=== PATIENT | female | born 1975 | race African-American/Black ===

== ENCOUNTER 2025-09-03 20:29 | Inpatient (IN) | payer MEDICAID ==
[~2025-09-03] VITALS: Ht 167.6 cm; Wt 67.1 kg
[2025-09-03 20:34] VITALS: O2SAT 98
[2025-09-03] MEDS: MORPHINE SULFATE 4 MG/ML INJ (FOR IV/IM USE) IV ONE (21:37)
[2025-09-03] MEDS: ONDANSETRON HCL 4MG/2ML INJ IV ONE (21:37)
[2025-09-03 21:43] LABS: BASOPHILS % 0.4 % (0.0-2.0); EOSINOPHILS % 2.5 % (0.0-5.0); HEMATOCRIT. 39.4 % (36.0-48.0); HEMOGLOBIN. 13.0 g/dL (12.0-16.0); LYMPHOCYTES % 49.2 % (20.0-50.0); MEAN PLATELET VOLUME 8.0 fl (7.4-10.4); MONOCYTES % 6.7 % (2.0-8.0); NEUTROPHILS % 41.2 % (40.0-76.0); PLATELET 263 x1000/uL (130-400); RED BLOOD CELL COUNT 4.08 mill/uL (4.2-5.4); RED CELL DISTRIBUTION WIDTH 16.0 % (11.6-14.6)
[2025-09-03] MEDS ORDERED: NICOTINE 14MG PATCH TD ONE (21:45)
[2025-09-03 22:02] LABS: CREATININE 0.9 mg/dL (0.6-1.0)
[2025-09-03 22:03] LABS: TROPONIN I HIGH SENSITIVITY < 4 ng/L (3.0-34); UREA NITROGEN BLOOD 13 mg/dL (9-23)
[2025-09-03 22:04] LABS: ASPARTATE AMINOTRANSFERASE 11 IU/L (<34)
[2025-09-03 22:05] LABS: BILIRUBIN DIRECT 0.1 mg/dL (<=3.0); BILIRUBIN TOTAL 0.4 mg/dL (0.1-1.0); PROTEIN TOTAL 7.2 g/dL (6.0-8.3)
[2025-09-03] MEDS: NICOTINE 7MG PATCH TOP NR (22:49)
[2025-09-03] MEDS ORDERED: CLONIDINE 0.1MG TABLET PO PRN (23:45)
[2025-09-03] MEDS ORDERED: ACETAMINOPHEN 325MG TABLET PO PRN (23:45)
[2025-09-03] MEDS ORDERED: ZOLPIDEM TARTRATE 5MG TABLET PO PRN (23:45)
[2025-09-03] MEDS ORDERED: DEXTROSE 50% WATER 50ML SYRINGE IV PRN (23:45)
[2025-09-03] MEDS ORDERED: MAGNESIUM/ALUMINUM HYDROXIDE/SIMETHICONE 30ML UDC PO PRN (23:45)
[2025-09-03] MEDS ORDERED: ONDANSETRON HCL 4MG/2ML INJ IV PRN (23:45)
[2025-09-03 23:54] LABS: TROPONIN I HIGH SENSITIVITY 5 ng/L (3.0-34)
[2025-09-04] MEDS: HYDROCODONE/ACETAMINOPHEN 5/325MG TABLET PO PRN (03:38)
[2025-09-04] MEDS: INSULIN LISPRO 100 UNITS/ML SUBCUT SCH (08:23)
[2025-09-04 08:58] LABS: BASOPHILS % 0.2 % (0.0-2.0); EOSINOPHILS % 2.3 % (0.0-5.0); HEMATOCRIT. 37.9 % (36.0-48.0); HEMOGLOBIN. 12.4 g/dL (12.0-16.0); LYMPHOCYTES % 26.7 % (20.0-50.0); MEAN PLATELET VOLUME 8.0 fl (7.4-10.4); MONOCYTES % 6.5 % (2.0-8.0); NEUTROPHILS % 64.3 % (40.0-76.0); PLATELET 248 x1000/uL (130-400); RED BLOOD CELL COUNT 3.88 mill/uL (4.2-5.4); RED CELL DISTRIBUTION WIDTH 16.4 % (11.6-14.6)
[2025-09-04] MEDS: ENOXAPARIN 40MG/0.4ML SYR SUBCUT SCH (09:00)
[2025-09-04 09:14] LABS: CREATININE 1.1 mg/dL (0.6-1.0); UREA NITROGEN BLOOD 10 mg/dL (9-23)
[2025-09-04 09:15] LABS: TROPONIN I HIGH SENSITIVITY < 4 ng/L (3.0-34)
[2025-09-04] MEDS: BLOOD SUGAR DIAGNOSTIC STRIP TEST SCH (09:54)
[2025-09-04] MEDS: INSULIN GLARGINE 100 UNITS/ML SUBCUT SCH (09:58)
[2025-09-04] MEDS: PANTOPRAZOLE SODIUM 40 MG/VIAL IV SCH (10:01)
[2025-09-04] MEDS ORDERED: HYDR-4009 MT (10:11)
[2025-09-04] MEDS ORDERED: FAMO40TA7 PO (10:11)
[2025-09-04] MEDS ORDERED: LORA-249 PO (10:26)
[2025-09-04] MEDS ORDERED: METO-293 PO (10:26)
[2025-09-04] MEDS ORDERED: ASPI-1497 PO (10:26)
[2025-09-04] MEDS ORDERED: METF-416 PO (10:26)
[2025-09-04] MEDS ORDERED: INSU100I28 SQ (10:26)
[2025-09-04] MEDS ORDERED: ASCO100T12 MT (10:26)
[2025-09-04] MEDS ORDERED: PREG100C55 PO (10:26)
[2025-09-04] MEDS ORDERED: FLUT9.9S BOTHNSTRLS (10:26)
[2025-09-04] MEDS ORDERED: ISOS30TA12 PO (10:26)
[2025-09-04] MEDS ORDERED: NITR0.4T49 SL (10:26)
[2025-09-04] MEDS ORDERED: INSU100V43 SQ (10:26)
[2025-09-04] MEDS ORDERED: FERR325T6 PO (10:26)
[2025-09-04] MEDS ORDERED: AMLO5TAB88 PO (10:26)
[2025-09-04] MEDS ORDERED: TC025C15 TP (10:26)
[2025-09-04] MEDS ORDERED: ESCI20TA PO (10:26)
[2025-09-04] MEDS ORDERED: TOLT4CAP27 MT (10:26)
[2025-09-04] MEDS ORDERED: ATOR-2 PO (10:26)
[2025-09-04] MEDS ORDERED: LEVO137T2 PO (10:26)
[2025-09-04] MEDS: SODIUM CHLORIDE 0.9% 1,000 ML IV NR (10:40)
[2025-09-04 11:22] VITALS: BP 130/71; PULSE 77; RESP 18; TEMP 36.7516
[2025-09-04 12:00] VITALS: BP 148/88; PULSE 78; RESP 18; TEMP 36.7; O2SAT 98
[2025-09-04 12:43] VITALS: BP 130/71; PULSE 77; RESP 18
[2025-09-04] MEDS ORDERED: ATORVASTATIN CALCIUM 40MG TABLET PO SCH (21:00)
[2025-09-05] MEDS ORDERED: ASPIRIN 81MG TABLET PO SCH (09:00)
== END 2025-09-04 17:57 | disposition left against medical advice (07) | DRG 198 ==
LOC: ER 20:29 → 8WST 22:41 → EDBEDREQTM 22:47 → EDBEDREQ 22:47 → ENRESERV 09-04 08:18
PROVIDERS: ADMIT Internal Medicine; ATTEND Internal Medicine
DX: I25.110 Atherosclerotic heart disease of native coronary artery with unstable angina pectoris (principal); E11.65 Type 2 diabetes mellitus with hyperglycemia; F17.200 Nicotine dependence, unspecified, uncomplicated; G89.29 Other chronic pain; J44.9 Chronic obstructive pulmonary disease, unspecified; I10 Essential (primary) hypertension; E78.5 Hyperlipidemia, unspecified; Z53.29 Procedure and treatment not carried out because of patient's decision for other reasons; Z91.148 Patient's other noncompliance with medication regimen for other reason; Z79.899 Other long term (current) drug therapy; Z88.0 Allergy status to penicillin; Z79.84 Long term (current) use of oral hypoglycemic drugs; Z95.1 Presence of aortocoronary bypass graft; Z76.5 Malingerer [conscious simulation]
CPT/HCPCS: 36415; 71045; 73502; 73552; 80048; 80076; 82962; 83735; 83880; 84443; 84484; 85025; 93005; 93971; 96374; 96375; 99285; J1650; J1815; J2270; J2405; J2470